=== PATIENT | male | born 1990 | race Two or more races ===

== ENCOUNTER 2023-09-03 19:26 | Emergency (ER) | payer MEDICAID, OTHER ==
[~2023-09-03] VITALS: Ht 172.7 cm; Wt 100.0 kg
[2023-09-03 23:05] VITALS: BP 147/95; PULSE 78; RESP 18; TEMP 98.5; O2SAT 96
[2023-09-03] MEDS ORDERED: IBUP-1456 PO (23:51)
[2023-09-03] MEDS ORDERED: HYDR2.5C39 TOP (23:51)
[2023-09-03] MEDS: KETOROLAC TROMETH 60MG/2ML VIAL IM ONE (23:54)
== END 2023-09-03 23:51 | disposition home or self-care (01) ==
LOC: ER 19:26
DX: K64.4 Residual hemorrhoidal skin tags (principal); J45.909 Unspecified asthma, uncomplicated; F17.210 Nicotine dependence, cigarettes, uncomplicated; Z79.1 Long term (current) use of non-steroidal anti-inflammatories (NSAID); Z79.899 Other long term (current) drug therapy
CPT/HCPCS: 96372; 99283; J1885

== ENCOUNTER 2025-04-17 05:21 | Emergency (ER) | payer MEDICAID ==
[~2025-04-17] VITALS: Ht 170.2 cm; Wt 92.8 kg
[~2025-04-17 05:21] MED LIST: HYDR2.5C39 TOP; IBUP-1456 PO
[2025-04-17 05:26] VITALS: BP 157/96; PULSE 82; RESP 18; TEMP 97.5; O2SAT 98
--- NOTE | 2025-04-17 06:26 | ED.PDOC ---
History of Present Illness Chief Complaint: General Weakness Primary Care Provider: None Allergies: Coded Allergies: NO KNOWN ALLERGIES (Unverified , 08/04/12) Home Meds Active Scripts Hydrocortisone Base (Anusol-Hc) 2.5 % Cre, 1 APPLIC TOP BID PRN, #1 CRE 0 Refills Prov:HILDA SMITH 09/03/23 Ibuprofen (Ibuprofen) 800 Mg Tab, 1 TAB PO TID PRN, #30 TAB 0 Refills Prov:HILDA SMITH 09/03/23 Mode of Arrival: Ambulatory Past Medical History PAST MEDICAL HISTORY: Asthma Surgical History: Denies all surgeries Family History Family History: Unknown Social History Smoker: Cigarettes, Less Than 1 Pack/Day Alcohol: Denies ETOH Use Drugs: Marijuana, Methamphetamine Lives In: Home Constitutional: reports: weakness; denies: chills, diaphoresis, fatigue, fever, malaise, sweats, others EENTM: denies: blurred vision, double vision, ear bleeding, ear discharge, ear drainage, ear pain, ear ringing, eye pain, eye redness, hearing loss, mouth pain, mouth swelling, nasal discharge, nose bleeding, nose congestion, nose pain, photophobia, tearing, throat pain, throat swelling, voice changes, others Respiratory: denies: cough, hemoptysis, orthopnea, SOB at rest, shortness of breath, SOB with excertion, stridor, wheezing, others Cardiovascular: denies: chest pain, dizzy spells, diaphoresis, Dyspnea on exertion, edema, irregular heart beat, left arm pain, lightheadedness, palpitations, PND, syncope, others Gastrointestinal: denies: abdomen distended, abdominal pain, blood streaked bowels, constipated, diarrhea, dysphagia, difficulty swallowing, hematemesis, melena, nausea, poor appetite, poor fluid intake, rectal bleeding, rectal pain, vomiting, others Genitourinary: denies: burning, dysuria, flank pain, frequency, hematuria, incontinence, penile discharge, penile sore, pain, testicle pain, testicle swelling, urgency, others Neurological: denies: dizziness, fainting, headache, left sided numbness, left sided weakness, numbness, paresthesia, pre-existing deficit, right sided numbness, right sided weakness, seizure, speech problems, tingling, tremors, weakness, others Musculoskeletal: denies: back pain, gout, joint pain, joint swelling, muscle pain, muscle stiffness, neck pain, others Integumetry: denies: bruises, change in color, change in hair/nails, dryness, laceration, lesions, lumps, rash, wounds, others Allergic/Immunocompromised: denies: Difficulty Healing, Frequent Infections, Hives, Itching, others Hematologic/Lymphatic: denies: anemia, blood clots, easy bleeding, easy bruising, swollen glands, others Endocrine: denies: excessive hunger, excessive sweating, excessive thirst, excessive urination, flushing, intolerance to cold, intolerance to heat, unexplained weight gain, unexplained weight loss, others Psychiatric: denies: anxiety, bipolar disorder, depression, hopeless, panic disorder, schizophrenia, sleepless, suicidal, others All Other Systems: Reviewed and Negative Was a procedure done? Was a procedure done?: No X-Ray, Labs, Meds, VS Vital Signs Date Time Temp Pulse Resp B/P (MAP) Pulse Ox O2 Delivery O2 Flow Rate FiO2 04/17/25 05:26 97.5 82 18 157/96 98 97.5 SEPSIS Sepsis Screen Date sepsis recognized/suspect: Apr 17, 2025 Time Sepsis recognized/suspect: 0530 Recent Procedure: No On Antibiotic Therapy: No Respiratory Rate >20: No Heart Rate >90: No Temp<36 C (96.8 F) or >38.3 C: No SBP <90 or MAP <65 mmHG: No New Acute Mental Status Change: No Is the patient on CPAP, BIPAP,: No Vital Signs Date Time Temp Pulse Resp B/P (MAP) Pulse Ox O2 Delivery O2 Flow Rate FiO2 04/17/25 05:26 97.5 82 18 157/96 98 97.5 Stability Stability form required: No Heart Score Heart Score: Heart Score Response (Comments) Value History N/A 0 EKG N/A 0 Age N/A 0 Risk Factors N/A 0 Troponin N/A 0 Total 0 I personally scribed for RADHA HAYNES MD ([email or web address]) on 04/17/25 at 06:26. Electronically submitted by Veronika Delacruz ([email or web address]). I personally scribed for RADHA HAYNES MD ([email or web address]) on 04/17/25 at 07:22. Electronically submitted by Veronika Delacruz ([email or web address]). RADHA HAYNES MD Apr 17, 2025 06:26
== END 2025-04-17 07:23 | disposition left against medical advice (07) ==
LOC: ER 05:23
DX: R04.0 Epistaxis (principal); Z79.899 Other long term (current) drug therapy